=== PATIENT | female | born 1960 | race Caucasian/White ===

== ENCOUNTER → 2017-12-04 | Outpatient (CLI) | payer MEDICARE, BC | END | disposition home or self-care (01) | LOC: PCVCIMAG 16:30 | DX: R55 Syncope and collapse (principal); E78.5 Hyperlipidemia, unspecified; F31.9 Bipolar disorder, unspecified; E06.3 Autoimmune thyroiditis | CPT/HCPCS: 93005; 93306; G0463 ==

== ENCOUNTER → 2017-12-04 | Outpatient (CLI) | payer MEDICARE, BC | END | disposition home or self-care (01) | LOC: PCVCCLINIC 15:50 | DX: E78.5 Hyperlipidemia, unspecified (principal); F31.9 Bipolar disorder, unspecified; E06.3 Autoimmune thyroiditis; R55 Syncope and collapse; Z79.899 Other long term (current) drug therapy | CPT/HCPCS: 93005; G0463 ==